=== PATIENT | female | born 1990 | race Hispanic/Latino ===

== ENCOUNTER 2023-11-11 21:04 | Emergency (ER) | payer SELFPAY ==
[2023-11-11 21:06] VITALS: BP 135/77; BMI 20.1
--- NOTE | 2023-11-11 22:16 | ED.GENMED ---
History of Present Illness
General
Chief Complaint: Headache
Source: patient
Time Seen by Provider: 11/11/23 21:50
History of Present Illness
History of Present Illness:
33yoF with no significant past medical history presenting for evaluation of a rash. She initially started with left shoulder and chest discomfort 6 days ago. She then developed a headache and fevers the next day. She started to notice a blistering
rash on the left shoulder and left chest about 3 days ago which she believes is shingles. Tmax 39C. She has been taking Tylenol without much improvement in her pain. She denies any neck stiffness or vomiting. She has a history of chicken pox as a
child. She denies chance of .
Phy Exam
General Physical Exam
General Presentation: well appearing and no apparent distress
General age: appears stated age
General Skin: warm and dry
General Habitus: normal
ENT Exam
Additional ENT: No menignismus
Pulmonary Exam
Pulmonary Exam: no respiratory distress
[place] Coma Scale
Eye Opening: Spontaneous
Verbal Response: Oriented
Motor Response: Obeys Commands
GCS Total Score: 15
Skin Exam
Skin Exam: other (Scattered areas of vesicular lesions in the posterior L shoulder and L chest in a dermatomal distribution. )
Psychiatric Exam
Psychiatric Exam: normal mood/affect
Course
Orders/Labs/Results
Orders:
Orders
11/11/23 22:16
Ketorolac [Toradol] 15 mg IM NOW STA
11/11/23 22:20
Valacyclovir HCl [Valtrex] 1,000 mg PO DAILY
Vital Signs
Initial and Last Documented VS:
Initial Vital Signs
Temp Pulse Resp BP Pulse Ox
98.9 F 89 16 135/77 99
11/11/23 21:06 11/11/23 21:06 11/11/23 21:06 11/11/23 21:06 07/26/24 21:06
Last Documented Vital Signs
Temp Pulse Resp BP Pulse Ox
98.9 F 89 16 135/77 99
11/11/23 21:06 11/11/23 21:06 11/11/23 21:06 11/11/23 21:06 11/11/23 21:06
MDM/Problems Addressed
Differential Diagnosis Includes:
33yoF here with a rash. Started with pain, headaches, and fevers last week and noticed a rash to the L shoulder/chest 3 days ago. No neck stiffness. Patient is afebrile and hemodynamically stable. She is well-appearing in no acute distress. On
exam, there are clustered areas of vesicular lesions along a dermatomal pattern consistent with zoster. No clinical signs of meningismus on exam.
She was started on a course of Valtrex. Supportive care discussed. She was offered a prescription for oxycodone which she declines. Advised f/u with PCP and ED return precautions discussed. She was discharged in stable condition.
*Critical Care Note
Total Time (30-74mins, 75-104mins- exclusive of procedures): Not Applicable
ED Attending Note
-
Portions of this chart may have been created with voice recognition software.� Occasional wrong word or��sound alike� substitutions may have occurred due to the inherent limitations of voice recognition software.
Discharge Plan
Departure
Patient Disposition: Home (Routine Discharge)
Date of Disposition: 11/11/23
Time of Disposition: 22:18
Patient with high blood pressure during this ER visit?: No
Discharge Problem:
Herpes zoster
Instructions: Shingles
Prescriptions:
New
valacyclovir [Valtrex] 1 gram tablet
1,000 mg PO Q8H Qty: 21 0RF
Referrals:
[facility] [Provider Group]
NONE,* [Family Provider] -
Activity Restrictions/Additional Instructions:
Take Valtrex as prescribed. Take Tylenol and ibuprofen for pain. You may also use capsaicin cream. Keep rash covered until completely scabbed over.
Please follow-up with your family doctor next week. Return to the ER with any new or worsening symptoms.
Interventions
Interventions:
*Risk Screen - Suicide Last Done: 11/11/23 21:06
*General Assessment Last Done: 11/11/23 22:42
*Neglect/Abuse Screening Last Done: 11/11/23 21:06
ED- Fall Risk Assessment Last Done: 11/11/23 21:06
*ED COVID-19 Vaccine History Last Done: 11/11/23 22:42
*Nursing Disposition Last Done: 11/11/23 22:50
ED- Neurological Assessment Last Done: 11/11/23 22:42
Discharge Date and Time
Discharge Date/Time: 11/11/23 22:54
Print Language: STATELESS
[2023-11-11] MEDS: VALTREX 1000 MG PO (22:34)
[2023-11-11] MEDS: TORADOL 15 MG IM (22:38)
== END 2023-11-11 22:54 | disposition home or self-care (01) ==
LOC: EMR 21:04
PROVIDERS: EMERGENCY PHYSICIAN Student in an Organized Health Care Education/Training Program
DX: B02.9 Zoster without complications (principal)
CPT/HCPCS: 99284; 96372